=== PATIENT | female | born 1985 | race Caucasian/White ===

== ENCOUNTER → 2021-01-26 | Outpatient (CLI) | payer BC, OTHER ==
[~2021-01-26] MED LIST: SUBUTEX 8 MG TAB8 MG SL
[2021-01-26 12:49] LABS: HEMOGLOBIN 13.4 gm/dl (12.3-15.3); RED BLOOD COUNT 4.59 M/UL (4.00-5.10); WHITE BLOOD COUNT 8.8 K/UL (4.5-11.0)
[2021-01-26 15:49] LABS: BUN/CREATININE RATIO 13 (0-10)
[2021-01-27 09:12] LABS: HIV SCREEN 4TH GENERATION WRFX Non Reactive (Non Reactive); RPR Non Reactive (Non Reactive)
[2021-01-27 11:12] LABS: ANTISTREPTOLYSIN O AB 116.6 IU/mL (0.0-200.0); RHEUMATOID ARTHRITIS FACTOR 19.4 IU/mL (0.0-13.9)
[2021-01-27 13:12] LABS: HBSAG SCREEN Negative (Negative); HEP A AB, IGM Negative (Negative); HEP B CORE AB, IGM Negative (Negative); HEP C VIRUS AB >11.0 (0.0-0.9); HEPATITIS B SURF AB QUANT 28.5 mIU/mL (Immunity>9.9)
[2021-01-29 05:09] LABS: QUANTIFERON MITOGEN VALUE >10.00 IU/mL (.); QUANTIFERON-TB GOLD PLUS Negative (Negative)
[2021-01-29 21:09] LABS: HCV AB >11.0 (0.0-0.9); HCV LOG10 6.025 (.); HEPATITIS C QUANTITATION 1060000 IU/mL (.)
== END ==
LOC: LAB 10:24
PROVIDERS: Nurse Practitioner Family
DX: Z00.00 Encounter for general adult medical examination without abnormal findings (principal); M12.9 Arthropathy, unspecified; R53.83 Other fatigue; R53.81 Other malaise; E78.5 Hyperlipidemia, unspecified; I10 Essential (primary) hypertension; M25.50 Pain in unspecified joint; Z51.81 Encounter for therapeutic drug level monitoring; Z79.899 Other long term (current) drug therapy; F11.21 Opioid dependence, in remission; F17.200 Nicotine dependence, unspecified, uncomplicated
CPT/HCPCS: 36415; 80053; 80061; 80074; 82150; 83690; 84443; 84550; 85025; 85652; 86038; 86060; 86140; 86317; 86431; 86592; 86704; 86708; 86803; 87389; 87522

== ENCOUNTER 2021-05-21 16:29 | Emergency (ER) | payer BC ==
[2021-05-21] MEDS ORDERED: NAPROSYN500 MG PO (18:45)
== END 2021-05-21 18:58 | disposition home or self-care (01) ==
LOC: ER1 16:29
DX: M25.521 Pain in right elbow (principal); F17.200 Nicotine dependence, unspecified, uncomplicated
CPT/HCPCS: 73070; 99283